=== PATIENT | female | born 1980 | race African-American/Black ===

== ENCOUNTER 2018-02-01 12:16 | Inpatient (IN) | payer OTHER ==
[2018-02-01] MEDS ORDERED: IBUPROFEN 600 MG TAB PO (13:30)
[2018-02-01] MEDS ORDERED: LIDOCAINE 1% (MPF) 30 ML INJ INJ (13:30)
[2018-02-01] MEDS ORDERED: BUTORPHANOL 2 MG INJ IV (13:30)
[2018-02-01] MEDS ORDERED: OXYTOCIN 30 UNITS/LR 500 ML IV (13:30)
[2018-02-01] MEDS ORDERED: METHYLERGONOVINE 0.2 MG INJ IM (13:30)
[2018-02-01] MEDS ORDERED: CARBOPROST 250 MCG INJ IM (13:30)
[2018-02-01] MEDS ORDERED: MISOPROSTOL 200 MCG TAB PR (13:30)
[2018-02-01 13:53] LABS: ADD MAN DIFF? NO
[2018-02-01 13:57] LABS: EOSINOPHILS % 0.4 % (0.0-7.0); HEMATOCRIT 32.9 % (37.0-47.0); HEMOGLOBIN 10.8 g/dl (12.0-16.0); LYMPHOCYTES # 0.8 10^3/ul (0.8-2.9); LYMPHOCYTES % 16.5 % (15.0-51.0); MEAN CORPUSCULAR HEMOGLOBIN 29.7 pg (29.0-33.0); MEAN CORPUSCULAR HGB CONC 32.8 g/dl (32.0-37.0); MEAN CORPUSCULAR VOLUME 90.4 fl (82.0-101.0); MEAN PLATELET VOLUME 9.3 fl (7.4-10.4); MONOCYTE # 0.4 10^3/ul (0.3-0.9); MONOCYTES % 7.2 % (0.0-11.0); NEUTROPHIL # 3.7 10^3/ul (1.6-7.5); NEUTROPHILS % 75.5 % (39.0-77.0); PLATELET COUNT 205 10^3/UL (140-415); RED BLOOD COUNT 3.64 10^6/ul (4.20-5.40)
[2018-02-01 13:57] LABS: WHITE BLOOD COUNT 4.9 10^3/ul (4.8-10.8)
[2018-02-01 14:21] LABS: ADD UMIC YES; UR ASCORBIC ACID NEGATIVE (NEGATIVE); UR BACTERIA FEW /HPF (NONE SEEN); UR BILIRUBIN (Dip) NEGATIVE (NEGATIVE); UR BLOOD (Dip) NEGATIVE (NEGATIVE); UR CLARITY CLEAR (CLEAR); UR COLOR STRAW (YELLOW); UR GLUCOSE (Dip) NEGATIVE (NEGATIVE); UR KETONES (Dip) NEGATIVE (NEGATIVE); UR LEUKOCYTE ESTERASE (Dip) 2+ Leu/ul (NEGATIVE); UR NITRITE (Dip) NEGATIVE (NEGATIVE); UR RBC 1 /HPF (0-5); UR SPECIFIC GRAVITY (Dip) 1.003 (1.003-1.030); UR TOTAL PROTEIN (Dip) NEGATIVE (NEGATIVE); UR UROBILINOGEN (Dip) NEGATIVE (NEGATIVE); UR WBC 1 /HPF (0-5)
[2018-02-01 14:27] LABS: INR 0.94; PARTIAL THROMBOPLASTIN TIME 25.6 Sec (25.0-35.0); PROTIME 12.7 Sec (11.9-14.9)
[2018-02-01 14:30] LABS: URIC ACID 4.5 mg/dl (3.1-7.9)
[2018-02-01 14:31] LABS: ALANINE AMINOTRANSFERASE 17 IU/L (13-69); ALBUMIN 3.7 g/dl (3.3-4.9); ALBUMIN/GLOBULIN RATIO 1.02; ALKALINE PHOSPHATASE 95 IU/L (42-121); ANION GAP 14 (8-16); ASPARTATE AMINO TRANSFERASE 19 IU/L (15-46); BILIRUBIN,INDIRECT 0.1 mg/dl (0-1.1); BILIRUBIN,TOTAL 0.1 mg/dl (0.2-1.3); BLOOD UREA NITROGEN 6 mg/dl (7-20); CARBON DIOXIDE 23 mmol/L (21-31); CHLORIDE 104 mmol/L (97-110); CREATININE 0.52 mg/dl (0.44-1.00); GLUCOSE 78 mg/dl (70-220); POTASSIUM 4.1 mmol/L (3.5-5.1); SODIUM 137 mmol/L (135-144); TOTAL PROTEIN 7.3 g/dl (6.1-8.1)
[2018-02-01 15:01] LABS: HEPATITIS B SURFACE ANTIGEN NEGATIVE (NEGATIVE)
[2018-02-01] MEDS: LACTATED RINGER'S 1,000 ML IV ×2 (17:22→20:49)
[2018-02-01] MEDS: OXYTOCIN 30 UNITS/LR 500 ML IV (17:25)
[2018-02-01 18:16] LABS: RAPID PLASMA REAGIN NONREACTIVE (NR)
[2018-02-02] MEDS: LACTATED RINGER'S 1,000 ML IV ×3 (04:23→18:29)
[2018-02-02] MEDS: SENNA/DOCUSATE NA (8.6MG/50MG) TAB PO (10:48)
[2018-02-03] MEDS: LACTATED RINGER'S 1,000 ML IV ×3 (00:19→04:36)
[2018-02-03] MEDS ORDERED: FENTAnyl 2MCG/ML-ROPIV 0.2% 100 ML (01:08)
[2018-02-03] MEDS ORDERED: TRIMETHOBENZAMIDE 100 MG/ML VIAL IM (02:00)
[2018-02-03] MEDS ORDERED: FENTAnyl 2MCG/ML-ROPIV 0.2% 100 ML BAG EPI (02:00)
[2018-02-03] MEDS ORDERED: NALOXONE (0.4 MG/ML) INJ IV (02:00)
[2018-02-03] MEDS ORDERED: DIPHENHYDRAMINE 50 MG INJ IV ×2 (02:00→08:00)
[2018-02-03] MEDS ORDERED: ONDANSETRON 4 MG INJ IV ×2 (02:00→08:00)
[2018-02-03] MEDS ORDERED: LACTATED RINGER'S 1,000 ML IV* (07:52)
[2018-02-03] MEDS ORDERED: MISOPROSTOL 200 MCG TAB PR (08:00)
[2018-02-03] MEDS ORDERED: SENNA/DOCUSATE NA (8.6MG/50MG) TAB PO (08:00)
[2018-02-03] MEDS ORDERED: OXYTOCIN 30 UNITS/LR 500 ML IV (08:00)
[2018-02-03] MEDS ORDERED: NA PHOSPHATE/BIPHOS 133 ML ENEMA PR (08:00)
[2018-02-03] MEDS ORDERED: ONDANSETRON 4 MG TAB PO (08:00)
[2018-02-03] MEDS ORDERED: DIBUCAINE 1% 30 GM OINT PR (08:00)
[2018-02-03] MEDS ORDERED: DIPHENHYDRAMINE 25 MG CAP PO (08:00)
[2018-02-03] MEDS ORDERED: HYDROCODONE/APAP (5/325) TAB PO (08:00)
[2018-02-03] MEDS ORDERED: CARBOPROST 250 MCG INJ IM (08:00)
[2018-02-03] MEDS ORDERED: MAGNESIUM HYDROXIDE 30ML CUP PO (08:00)
[2018-02-03] MEDS: OXYTOCIN 30 UNITS/LR 500 ML IV ×2 (08:11)
[2018-02-03] MEDS: IBUPROFEN 600 MG TAB PO ×2 (10:45→18:02)
[2018-02-03] MEDS: LANOLIN 7 GM TUBE TOP (10:46)
[2018-02-03] MEDS: BENZOCAINE 20% 56 ML SPRAY TOP (10:46)
[2018-02-03] MEDS: WITCH HAZEL/GLYCERIN PAD PR (10:46)
[2018-02-03] MEDS: OXYCODONE/ACETAMINOPHEN (5/325) TAB PO (20:03)
[2018-02-03] MEDS: SENNA/DOCUSATE NA (8.6MG/50MG) TAB PO (20:34)
[2018-02-04] MEDS: IBUPROFEN 600 MG TAB PO ×5 (00:08→23:37)
[2018-02-04] MEDS: SENNA/DOCUSATE NA (8.6MG/50MG) TAB PO ×2 (08:50→21:00)
[2018-02-04] MEDS: HYDROCODONE/APAP (5/325) TAB PO (08:55)
[2018-02-04 09:33] LABS: ADD MAN DIFF? NO
[2018-02-04 09:35] LABS: WHITE BLOOD COUNT 6.3 10^3/ul (4.8-10.8)
[2018-02-04 09:35] LABS: BASOPHILS % 0.2 % (0.0-2.0); EOSINOPHILS # 0.1 10^3/ul (0.0-0.5); EOSINOPHILS % 1.6 % (0.0-7.0); HEMATOCRIT 31.9 % (37.0-47.0); HEMOGLOBIN 10.1 g/dl (12.0-16.0); MEAN CORPUSCULAR HEMOGLOBIN 29.3 pg (29.0-33.0); MEAN CORPUSCULAR HGB CONC 31.7 g/dl (32.0-37.0); MEAN CORPUSCULAR VOLUME 92.5 fl (82.0-101.0); MEAN PLATELET VOLUME 9.7 fl (7.4-10.4); MONOCYTE # 0.4 10^3/ul (0.3-0.9); MONOCYTES % 6.8 % (0.0-11.0); NEUTROPHIL # 4.8 10^3/ul (1.6-7.5); NEUTROPHILS % 75.1 % (39.0-77.0); PLATELET COUNT 193 10^3/UL (140-415); RED BLOOD COUNT 3.45 10^6/ul (4.20-5.40); RED CELL DISTRIBUTION WIDTH 14.4 % (11.5-14.5)
[2018-02-05] MEDS: OXYCODONE/ACETAMINOPHEN (5/325) TAB PO (03:31)
[2018-02-05] MEDS: IBUPROFEN 600 MG TAB PO ×2 (05:54→12:38)
[2018-02-05] MEDS: DIPHTH/TET/ACEL PERTUSS (ADULT) 0.5 ML VIAL IM* (09:00)
[2018-02-05] MEDS: SENNA/DOCUSATE NA (8.6MG/50MG) TAB PO (09:01)
[2018-02-05] MEDS: VARICELLA VACCINE LIVE/PF 1,350 UNIT/0.5 ML ML SC* (09:38)
[2018-02-05] MEDS: MEASLES,MUMPS,RUBELLA VACCINE INJ SC* (09:38)
== END 2018-02-05 15:30 | disposition home or self-care (01) | DRG 775 ==
LOC: L-D 12:16 → PP1 02-03 10:17 → L-D 12:16
PROC: 3E033VJ Introduction of Other Hormone into Peripheral Vein, Percutaneous Approach (ICD-10-PCS; 2018-02-01)
PROC: 10E0XZZ Delivery of Products of Conception, External Approach (ICD-10-PCS; principal; 2018-02-03)
PROC: 0HQ9XZZ Repair Perineum Skin, External Approach (ICD-10-PCS; 2018-02-03)
DX: O69.81X0 Labor and delivery complicated by cord around neck, without compression, not applicable or unspecified (principal); O70.0 First degree perineal laceration during delivery; O99.214 Obesity complicating childbirth; E66.01 Morbid (severe) obesity due to excess calories; Z3A.40 40 weeks gestation of pregnancy; Z37.0 Single live birth; Z68.42 Body mass index [BMI] 45.0-49.9, adult
CPT/HCPCS: 62319; 76815; 80053; 81001; 84560; 85025; 85610; 85730; 86592; 86850; 86900; 86901; 87340; 99464